=== PATIENT | female | born 1940 | race Two or more races ===

== ENCOUNTER → 2023-09-29 09:12 | Outpatient (REF) | payer OTHER, SELFPAY | LOC: HWRCS 09:12 | PROVIDERS: ATTENDING PHYSICIAN Internal Medicine Cardiovascular Disease; FAMILY PHYSICIAN Family Medicine | DX: Z98.890 Other specified postprocedural states (principal) | CPT/HCPCS: 93306 ==

== ENCOUNTER → 2023-12-31 07:30 | Outpatient (REF) | payer OTHER, SELFPAY | LOC: RAD 07:30 | PROVIDERS: ATTENDING PHYSICIAN Family Medicine | DX: E11.59 Type 2 diabetes mellitus with other circulatory complications (principal) | CPT/HCPCS: 93922 ==

== ENCOUNTER → 2024-02-10 09:35 | Outpatient (REF) | payer OTHER, SELFPAY | LOC: RAD 09:35 | PROVIDERS: ATTENDING PHYSICIAN Surgery Vascular Surgery; FAMILY PHYSICIAN Family Medicine | DX: I73.9 Peripheral vascular disease, unspecified (principal); I87.2 Venous insufficiency (chronic) (peripheral) | CPT/HCPCS: 93925; 93970 ==

== ENCOUNTER 2024-03-10 06:18 | Day surgery (SDC) | payer OTHER, SELFPAY ==
--- NOTE | 2024-03-08 10:55 | PTCARENOTE ---
Pt's preop EKG scanned by office, dated 10/30/23, shows possible Afib, age undetermined infarct, ST depression. See EKG scanned dated 08/22/21 showing prior history.
[2024-03-10] VITALS (42 sets, daily range): BP systolic 129–201; BP diastolic 50–113; BMI 23.6
--- NOTE | 2024-03-10 06:51 | W.SUR.PREOP ---
Pre-Operative Surgical Note
-
I have examined this patient prior to the performance of the scheduled procedure.
The patient's condition is unchanged from the time of the current History and
Physical and the patient is able to undergo the scheduled procedure.
[2024-03-10] MEDS: NSS 500 IV (07:13)
[2024-03-10 07:21] LABS: Hematocrit 33.1 % (37.0-47.0); Hemoglobin 10.6 g/dL (12.0-16.0); Mean Corpuscular Hgb 33.2 pg (27.0-31.0); Mean Corpuscular Volume 103.8 fL (81.0-99.0); Mean Platelet Volume 11.1 fL (7.4-10.4); Platelet Count 136 10^3/uL (130-400); Red Blood Cell Count 3.19 10^6/uL (4.20-5.40); Red Cell Dist. Width 14.3 % (11.5-14.5)
[2024-03-10 07:27] LABS: INR 1.06; PT 14.1 Sec (11.4-14.6)
[2024-03-10 07:28] LABS: APTT 33.7 Sec (23.4-35.0)
[2024-03-10 07:29] LABS: Blood Urea Nitrogen 27 mg/dl (7-17); Calcium 9.8 mg/dl (8.4-10.2); Carbon Dioxide 26 mmol/L (22-30); Chloride 103 mmol/L (98-107); Estimated Creatinine Clearance 47 ml/min; Glucose 129 mg/dl (70-99); Potassium 4.1 mmol/L (3.5-5.1); Sodium 139 mmol/L (135-145); eGFR > 60.00
[2024-03-10 07:31] LABS: Glucose - Point of Care 113 mg/dl (70-99)
--- NOTE | 2024-03-10 08:38 | W.SUR.POST ---
Surgical Immediate Post Op
Note
Pre Op Diagnosis: PAD
Post Op Diagnosis: Same
Procedure Performed: Left lower extremity arteriogram, left SFA balloon angioplasty and stent placement
Primary Surgeon: Jerry
Anesthesia: Local and sedation
Estimated Blood Loss: Less than 2 cc
Fluids: See anesthesia flowsheet
Drains/Shunts: None
Specimens/Cultures: None
Doppler/Duplex/Angio (Y/N): Y
Complications: None
Operative Findings: Successful stent placement
[2024-03-10 09:01] LABS: Glucose - Point of Care 120 mg/dl (70-99)
--- NOTE | 2024-03-10 09:03 | OR.RPT ---
Operative Report
Operative Report
PROCEDURE DATE: 03/10/2024
Preoperative diagnosis: Debilitating left lower extremity claudication, possible early rest pain.
Postoperative diagnosis: Same
Procedure:
1. Duplex assisted right common femoral artery cannulation.
2. Aortogram and pelvic angiogram.
3. Left lower extremity arteriogram with third order vessel catheterization of left popliteal artery via right common femoral artery puncture.
4. Balloon angioplasty and stent placement left distal superficial femoral artery with Stack[employer] Zilver PTX 6 mm x 80 mm drug-eluting stent.
5. Right femoral angiogram.
6. Supervision and interpretation.
Surgeon: Jerry
Mumps Developer: None
Complications: None
Anesthesia: Local, sedation
Fluoroscopy:
8.0 min
30 mGy
5.94 Gy.cm2
Indications for procedure:
Debilitating left calf claudication with potential early ischemic rest pain type symptoms. Risk/benefits/alternatives of angiography were discussed. Patient understood all wished to proceed.
Description of procedure:
Patient was identified, brought to the operating room. Placed on the table in the supine position. After the adequate administration of anesthesia, the patient was prepped and draped in the standard surgical fashion. A standard preoperative
timeout was undertaken and everybody was in agreement with the plan.
The right common femoral artery was accessed with a micropuncture kit under direct duplex ultrasound guidance. A 5 [place] sheath was then advanced over a 0.035 inch wire, and a licea's hook catheter was advanced into the abdominal aorta.
Aortogram and pelvic angiogram was obtained. Findings as follows:
The infrarenal abdominal aorta and bilateral common and external iliac arteries were patent with severe eccentric calcified plaque diffusely, but no hemodynamically significant stenosis
Using a floppy angled hydrophilic wire, the left common femoral artery was cannulated and the catheter was advanced. Left lower extremity arteriogram was obtained. Findings as follows:
Common femoral artery: Patent with luminal irregularities and mild to moderate calcified plaque, but no significant stenosis.
Profunda femoris artery: Patent with no significant stenosis.
Superficial femoral artery: Moderate eccentric calcified plaque, at the origin there was a opacified plaque, but did not appear to result in significant flow limitation. Luminal irregularities throughout the SFA with mild stenosis in the
midsegment. Then at the distal SFA there was a focal area of severe stenosis with luminal irregularity. No occlusion noted.
Popliteal artery: Patent with mild luminal irregularities but no significant stenosis.
Anterior tibial artery: Patent for approximately 2 cm and then occluded.
Tibial peroneal trunk: Patent with luminal irregularity mild noted. At the bifurcation of the tibioperoneal trunk there is a mild stenosis.
Peroneal artery: Patent with no significant stenosis in the proximal 4 to 5 cm. Beyond here the artery became diffusely small with luminal irregularities, appeared to be chronically calcified. Collateralization at the level of the ankle with Y
collaterals, but relatively poor filling into the foot.
Posterior tibial artery: Patent with diffuse diminutive stature, but no focal stenosis identified. Patent flow through to the ankle. The plantar's did not feel well due to small vessel disease. There was plaque noted throughout the posterior
tibial artery.
At this point, I selectively cannulated the superficial femoral artery and then exchanged for a Storq wire and an up and over 6 [place] sheath. The patient was given 5000 units of intravenous heparin. Using floppy angled hydrophilic wire and a CXI
catheter under roadmap assisted guidance I was able to traverse through the area of severe distal SFA stenosis, and then advance my catheter and exchanged for a Storq wire. Next I electively stented that segment using a 6 mm x 80 mm Zilver PTX
([employer]) drug coated self-expanding stent. This was post angioplastied with a 5 mm balloon. Completion angiogram demonstrated excellent result. There was some wire hold-up that I kept noting in the above-knee popliteal artery. Therefore I
performed a magnified image and it demonstrated no significant stenosis. Using a floppy wire and a CXI catheter I was able to easily traverse the area and passed the catheter without difficulty. Therefore I felt there was no significant stenosis.
At this point over the Storq wire I withdrew my sheath to the right distal external iliac artery. Right femoral angiogram demonstrated good puncture in the right common femoral artery. There was moderate right common femoral artery calcified
plaque with likely mild to moderate stenosis, but the origin of the SFA and proximal SFA had a heavy bulky calcified plaque and stenosis. At this point, the wires and catheters were withdrawn after exchanging for a short 6 [place] sheath. The
patient will be transferred to the recovery room in stable condition where the sheath will be withdrawn. Protamine was given reverse the heparin. Upon completion the patient had a palpable left popliteal pulse.
The patient tolerated procedure well.
[2024-03-10] MEDS: ASPIR LOW (ENTERIC COATED) 81 MG PO (10:26)
[2024-03-10] MEDS: TOPROL XL 12.5 MG PO (14:47)
[2024-03-10] MEDS: ENTRESTO 24 MG/26 MG 1 TAB PO (14:47)
--- NOTE | 2024-03-10 15:28 | PTCARENOTE ---
Patient BP 188/56. 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
== END 2024-03-10 16:12 | disposition home or self-care (01) ==
LOC: CATH 06:18
PROVIDERS: ATTENDING PHYSICIAN Surgery Vascular Surgery; FAMILY PHYSICIAN Family Medicine; OTHER PHYSICIAN Internal Medicine Cardiovascular Disease
DX: I70.212 Atherosclerosis of native arteries of extremities with intermittent claudication, left leg (principal); Z79.82 Long term (current) use of aspirin; Z79.84 Long term (current) use of oral hypoglycemic drugs; Z79.899 Other long term (current) drug therapy; Z79.890 Hormone replacement therapy; Z79.01 Long term (current) use of anticoagulants; I48.21 Permanent atrial fibrillation; I50.9 Heart failure, unspecified; E11.9 Type 2 diabetes mellitus without complications; E03.9 Hypothyroidism, unspecified; I34.0 Nonrheumatic mitral (valve) insufficiency; I87.2 Venous insufficiency (chronic) (peripheral)
CPT/HCPCS: 37226; 75625; 75716; 80048; 82962; 85027; 85610; 85730; 86850; 86900; 86901; C1725; C1769; C1874; C1887; C1894; Q9967

== ENCOUNTER → 2024-04-15 09:04 | Outpatient (REF) | payer OTHER, SELFPAY | LOC: DHVS 09:04 | PROVIDERS: ATTENDING PHYSICIAN Surgery Vascular Surgery; FAMILY PHYSICIAN Family Medicine | DX: I73.9 Peripheral vascular disease, unspecified (principal) | CPT/HCPCS: 93922; 93925 ==

== ENCOUNTER → 2024-10-06 12:34 | Outpatient (REF) | payer OTHER, SELFPAY | LOC: RAD 12:34 | PROVIDERS: ATTENDING PHYSICIAN Family Medicine | DX: R51.9 Headache, unspecified (principal) | CPT/HCPCS: 70260 ==

== ENCOUNTER → 2024-11-17 14:21 | Outpatient (REF) | payer OTHER, SELFPAY | LOC: RCS 14:21 | PROVIDERS: ATTENDING PHYSICIAN Internal Medicine Cardiovascular Disease; FAMILY PHYSICIAN Family Medicine | DX: I42.8 Other cardiomyopathies (principal); I35.0 Nonrheumatic aortic (valve) stenosis | CPT/HCPCS: 93306 ==

== ENCOUNTER → 2025-02-18 09:21 | Outpatient (REF) | payer OTHER, SELFPAY | LOC: RAD 09:21 | PROVIDERS: ATTENDING PHYSICIAN Internal Medicine Cardiovascular Disease; FAMILY PHYSICIAN Family Medicine | DX: R06.02 Shortness of breath (principal) | CPT/HCPCS: 71046 ==